=== PATIENT | female | born 1975 | race Caucasian/White ===

== ENCOUNTER 2024-02-09 14:20 | Outpatient (CLI) | payer OTHER, SELFPAY ==
[2024-02-09 14:43] LABS: Basophils Absolute Auto 0.05 K/mm3 (0.00-0.10); Basophils Percent Auto 0.7 % (0.0-1.0); Eosinophils Absolute Auto 0.14 K/mm3 (0.02-0.50); Eosinophils Percent Auto 1.9 % (1.0-6.0); Hematocrit 36.9 % (35.0-49.0); Immature Granulocyte Absolute 0.01 K/mm3 (0.00-0.00); Immature Granulocyte Percent A 0.1 % (0.0-0.0); Lymphocytes Absolute Auto 3.42 K/mm3 (1.10-4.50); Lymphocytes Percent Auto 47.5 % (18.0-42.0); Mean Corpuscular HGB Conc 32.5 g/dL (32-36); Mean Corpuscular Hemoglobin 28.5 pg (27.0-31.0); Mean Corpuscular Volume 87.6 fL (78.0-102.0); Mean Platelet Volume 9.8 fl (9.2-11.8); Monocytes Absolute Auto 0.43 K/mm3 (0.10-0.90); Neutrophils Absolute Auto 3.15 K/mm3 (1.70-7.20); Neutrophils Percent Auto 43.8 % (50.0-70.0); Platelet Count Result 263 K/mm3 (150-420); Red Blood Count 4.21 M/mm3 (4.20-5.40); White Blood Count 7.2 K/mm3 (4.8-10.8)
[2024-02-09 14:54] LABS: Hemoglobin A1C 5.7 % (<5.7)
[2024-02-09 15:33] LABS: Alanine Aminotransferase 19 U/L (14-59); Albumin Level 4.3 g/dL (3.4-5.0); Alkaline Phosphatase 63 U/L (46-116); Anion Gap 11 mmol/L (4-12); Aspartate Amino Transferase 18 U/L (15-37); Bilirubin,Total 1.1 mg/dL (0.00-1.00); Blood Urea Nitrogen 17 mg/dL (7-18); Calcium 9.2 mg/dL (8.5-10.1); Carbon Dioxide 25 mmol/L (21-32); Chloride 103 mmol/L (98-108); Cholesterol 188 mg/dL (0-200); Estimated Glomerular Filt Rate > 60; Glucose 89 mg/dL (70-99); HDL Direct 87 mg/dL (40-60); LDL Cholesterol Calculated 92 mg/dL (<130); Osmolality Calculated 288 mOsm/kg (285-295); Potassium 3.9 mmol/L (3.5-5.1); Sodium 139 mmol/L (136-145); Total Protein 7.7 g/dL (6.4-8.2); Triglycerides 44 mg/dL (0-150)
[2024-02-09 15:34] LABS: Thyroid Stimulating Hormone Reflex 2.26 u/IU/mL (0.36-3.74)
[2024-02-10 13:58] LABS: FSH >200.0 mIU/mL; LH 90.8 mIU/mL
[2024-02-13 16:49] LABS: Testosterone Free 2.4 pg/mL (0.1-6.4); Testosterone Total 29 ng/dL (2-45)
[2024-02-15 00:14] LABS: Estradiol, Ultrasensitive 6 pg/mL
== END 2024-02-09 14:21 | disposition home or self-care (01) ==
LOC: CHSLAB 14:21
PROVIDERS: PCP Nurse Practitioner Family; Visit Provider Nurse Practitioner Family
DX: Z00.00 Encounter for general adult medical examination without abnormal findings (principal); N91.2 Amenorrhea, unspecified
CPT/HCPCS: 36415; 80053; 80061; 82670; 83001; 83002; 83036; 84402; 84403; 84443; 85025